=== PATIENT | female | born 1940 | race Caucasian/White ===

== ENCOUNTER 2016-08-21 07:54 | Day surgery (SDC) | payer MEDICARE, BC ==
[~2016-08-21 07:54] MED LIST: Lactated Ringers 1,000 ML IV SCH; Lidocaine 1% 2 ML SDV ONE; Lidocaine 1%/Sod Bicarbonate in NS 8.4% 1 ML Syringe IV PRN; Propofol 200 MG/20 ML SDV ONE; Sodium Chloride 0.9% 10 ML Syringe FLUSH PRN; fentaNYL 100 MCG/2 ML SDV ONE
--- NOTE | 2016-08-21 08:23 | PCM.PREANE ---
Preanesthetic Assessment - Allergies Allergies/Adverse Reactions: Allergies Allergy/AdvReac Type Severity Reaction Status Date / Time atorvastatin Allergy Itching Verified 08/20/16 15:22 Dairy Products Allergy Cannot Verified 08/20/16 15:22 Remember PreAnesthesia Questionnaire HEENT History: Reports: Impaired vision, Other (see below) Other HEENT History: glasses, dentures Cardiovascular History: Reports: High cholesterol, Hypertension Respiratory History: Reports: None Gastrointestinal History: Reports: Chronic diarrhea, GERD Genitourinary History: Reports: Other (see below) Other Genitourinary History: malignant neoplasm of bladder, 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 (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 below) Other OB/BYN History: spontaneous vaginal delivery Musculoskeletal History: Reports: Arthritis, Osteoporosis Psychiatric History: Reports: None Endocrine/Metabolic History: Reports: None Hematologic History: Reports: None Immunologic History: Reports: None Oncologic (Cancer) History: Reports: None Dermatologic History: Reports: None - Past Surgical History Head Surgeries/Procedures: Reports: None HEENT Surgical History: Reports: Cataract surgery, Tonsillectomy GI Surgical History: Reports: Colonoscopy Female Surgical History: Reports: Hysterectomy Musculoskeletal Surgical History: Reports: Other (see below) Other Musculoskeletal Surgeries/Procedures:: foot surgery, knee replacement, knee surgery - SUBSTANCE USE Smoking Status *Q: Never Smoker Recreational Drug Use History: No - HOME MEDS Home Medications: Home Meds Aspirin [Low Dose Aspirin EC] 81 mg PO DAILY 06/06/14 [History] Hydrochlorothiazide 12.5 mg PO DAILY 06/06/14 [History] Meloxicam [Mobic] 1 tab PO DAILY PRN 06/06/14 [History] Pravastatin [Pravachol] 40 mg PO DAILY 06/06/14 [History] Cyanocobalamin (Vitamin B-12) [Vitamin B-12] 1 tab PO DAILY 08/20/16 [History] Zoledronic Acid/Mannitol&Water [Zoledronic Acid 5 mg/100 ml] 5 mg IV ASDIRECTED 08/20/16 [History] - CURRENT (IN HOUSE) MEDS Current Meds: Current Medications Lactated Ringer's (Ringers, Lactated) 1,000 mls @ 125 mls/hr IV ASDIRECTED ZAIRA Lidocaine/Sodium Bicarbonate (Buffered Lidocaine 1% In Ns 8.4%) 0.25 ml IV ONETIME PRN PRN Reason: Prior to IV Start Sodium Chloride (Saline Flush) 10 ml FLUSH ASDIRECTED PRN PRN Reason: Keep Vein Open Discontinued Medications Fentanyl (Sublimaze) Confirm Administered Dose 100 mcg .ROUTE .STK-MED ONE Stop: 08/21/16 07:45 Lidocaine HCl (Lidocaine 1%) Confirm Administered Dose 6 ml .ROUTE .STK-MED ONE Stop: 08/21/16 07:45 Propofol (Diprivan 20 Ml) Confirm Administered Dose 200 mg .ROUTE .STK-MED ONE Stop: 08/21/16 07:45 Preanesthetic Assessment - ANESTHESIA/TRANSFUSION/FAMILY HX Anesthesia/Transfusion History: No Prior Transfusion(s), Prior Anesthesia Type of Anesthesia Reaction: Denies: Allergy, Anesthesia Awareness, Excessive Somnolence, Excessive Nausea/Vomiting, Excessive Itching, Excessive Shivering, Malignant Hyperthermia, Malignant Hyperthermia, Family History, Pseudocholinesterase Deficiency, Pseudocholinesterase Deficiency, Family History of, Urinary Retention, Unknown, Other (see below) Family History of Anesthesia Reaction: No Intubation History: Unknown - REVIEW OF SYSTEMS Constitutional: Reports: no symptoms 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 Respiratory: Reports: no symptoms Cardiovascular: Reports: blood pressure problem, dyspnea on exertion GI: Reports: no symptoms (constipation/ GERD) Other: Reports: None - PHYSICAL ASSESSMENT HR: 69 O2 Sat by Pulse Oximetry: 100 RR: 16 BP: 121/73 Temp: 36.6 C Height: 1.57 m Weight: 59 kg NPO Status Date: 08/20/16 NPO Status Time: 22:30 ASA Class: 2 Mental Status: Alert & Oriented x3 Airway Class: Mallampati = 2 Dentition: Reports: Dentures (upper) Thyro-Mental Finger Breadths: 3 Mouth Opening Finger Breadths: 3 ROM/Head Extension: Full Respiratory Status: lungs clear to auscultation bilaterally Cardiovascular Status: regular rate & rhythm, normal S1, S2, no murmur - ALLERGIES Allergies/Adverse Reactions: Allergies Allergy/AdvReac Type Severity Reaction Status Date / Time atorvastatin Allergy Itching Verified 08/20/16 15:22 Dairy Products Allergy Cannot Verified 08/20/16 15:22 Remember - ANESTHESIA PLAN Preop Beta Erin: No Anesthesia Type Planned: MAC - ACKNOWLEDGEMENTS Pt an Appropriate Candidate for the Planned Anesthesia: Yes Alternatives and Risks of Anesthesia Discussed w Pt/Guardian: Yes Pt/Guardian Understands and Agrees with Anesthesia Plan: Yes
--- NOTE | 2016-08-21 10:06 | PCM.OPNOTE ---
- General Post-Op/Procedure Note Date of Surgery/Procedure: 08/21/16 Operative Procedure(s): colonoscopy with random rectal biopsies x2 using cold forceps Findings: 1. large sigmoid diverticuli with hypertrophy of the musculature 2. internal hemorrhoids Pre Op Diagnosis: change in bowel habits Post-Op Diagnosis: 1. internal hemorrhoids. 2. sigmoid diverticulosis and spasm Anesthesia Technique: MAC, Moderate sedation Primary Surgeon: Dominic Morse Pathology: rectal biopsies x2 EBL in mLs: 0 Complications: None Condition: Good Free Text/Narrative:: After adequate IV sedation and analgesia was obtained the patient was placed on her left side. Perianal inspection and digital rectal examination revealed the uncomplicated internal hemorrhoids. A lubricated colonoscope was inserted into the rectum and advanced to the cecum without difficulty. The bowel preparation was adequate. The cecum, right colon, transverse, and descending colons were endoscopically normal with no mass lesions or inflammatory changes seen. The sigmoid musculature was thickened, and was associated with multiple uncomplicated diverticuli. The rectum in both views was unremarkable, but because of her history I took 2 random biopsies for histologic review. Air was removed, as I finished the procedure. Automobile Rental Clerk photographs were taken for the patient and for the record. There were no complications.
[2016-08-21 11:11] VITALS: BP 114/67
== END 2016-08-21 11:00 | disposition home or self-care (01) ==
LOC: JD.SDS 07:54
PROVIDERS: ATTEND Surgery
PROC: 0DBP8ZX Excision of Rectum, Via Natural or Artificial Opening Endoscopic, Diagnostic (ICD-10-PCS; principal; 2016-08-21)
DX: K57.30 Diverticulosis of large intestine without perforation or abscess without bleeding (principal); K64.8 Other hemorrhoids; M19.90 Unspecified osteoarthritis, unspecified site; H26.9 Unspecified cataract; K21.9 Gastro-esophageal reflux disease without esophagitis; I10 Essential (primary) hypertension; M81.0 Age-related osteoporosis without current pathological fracture; Z88.8 Allergy status to other drugs, medicaments and biological substances; Z91.011 Allergy to milk products; Z79.82 Long term (current) use of aspirin; Z79.899 Other long term (current) drug therapy; Z85.51 Personal history of malignant neoplasm of bladder; Z98.49 Cataract extraction status, unspecified eye; Z96.659 Presence of unspecified artificial knee joint; Z90.710 Acquired absence of both cervix and uterus; Z90.89 Acquired absence of other organs; Z98.890 Other specified postprocedural states
CPT/HCPCS: 45380; 88305; J3010; J7120; J2704

== ENCOUNTER 2018-02-12 08:00 | Day surgery (SDC) | payer MEDICARE, BC ==
[~2018-02-12 08:00] MED LIST changes: -Lidocaine 1% 2 ML SDV ONE; +Lidocaine 1%/Sod Bicarbonate in NS 8.4% 1 ML Syringe IDERM PRN; -Lidocaine 1%/Sod Bicarbonate in NS 8.4% 1 ML Syringe IV PRN; -Propofol 200 MG/20 ML SDV ONE; -fentaNYL 100 MCG/2 ML SDV ONE
--- NOTE | 2018-02-12 08:37 | PCM.PREANE ---
Preanesthetic Assessment - Procedure Proposed Procedure: Right First Metatarsophalangeal joint fusion - Anesthesia/Transfusion/Family Hx Anesthesia History: Prior Anesthesia Without Reaction Family History of Anesthesia Reaction: No Transfusion History: No Prior Transfusion(s) - Review of Systems General: No Symptoms Pulmonary: No Symptoms Cardiovascular: Other (hypertension, hyperlipidemia, bradycardia) Gastrointestinal: Other (GERD, on and off symptoms, none today.) Neurological: No Symptoms, Other (History of vertigo, no issues for "a long time ".) Other: Reports: None - Physical Assessment NPO Status Date: 02/11/18 NPO Status Time: 22:30 Pulse: 72 O2 Sat by Pulse Oximetry: 96 Respiratory Rate: 16 Blood Pressure: 142/59 Temperature: 36.6 C Weight: 59 kg ASA Class: 2 Mental Status: Alert & Oriented x3 Airway Class: Mallampati = 1 Dentition: Reports: Dentures (Upper) Thyro-Mental Finger Breadths: 2 Mouth Opening Finger Breadths: 3 ROM/Head Extension: Full Lungs: Clear to Auscultation, Normal Respiratory Effort Cardiovascular: Regular Rate, Regular Rhythm, Bradycardia - Lab Values: Laboratory Last Values MRSA (PCR) Negative 02/04/18 16:03 - Allergies Allergies/Adverse Reactions: Allergies Allergy/AdvReac Type Severity Reaction Status Date / Time atorvastatin Allergy Itching Verified 02/12/18 08:46 Dairy Products Allergy Cannot Verified 02/12/18 08:46 Remember - Acknowledgements Anesthesia Type Planned: General Anesthesia Pt an Appropriate Candidate for the Planned Anesthesia: Yes Alternatives and Risks of Anesthesia Discussed w Pt/Guardian: Yes Pt/Guardian Understands and Agrees with Anesthesia Plan: Yes PreAnesthesia Questionnaire HEENT History: Reports: Impaired Vision, Other (See Below) Other HEENT History: glasses, dentures Cardiovascular History: Reports: High Cholesterol, Hypertension Respiratory History: Reports: None Gastrointestinal History: Reports: Chronic Diarrhea, GERD, Hemorrhoids Genitourinary History: Reports: Other (See Below) Other Genitourinary History: malignant neoplasm of bladder, 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) Other OB/BYN History: spontaneous vaginal delivery, ovarian cyst, breast biopsy , A and P repair, cystocele , rectocele Musculoskeletal History: Reports: Arthritis, Osteoporosis, Other (See Below) Other Musculoskeletal History: right foot pain Neurological History: Reports: None Psychiatric History: Reports: None Endocrine/Metabolic History: Reports: None Hematologic History: Reports: None Immunologic History: Reports: None Oncologic (Cancer) History: Reports: None Dermatologic History: Reports: None - Past Surgical History Head Surgeries/Procedures: Reports: None HEENT Surgical History: Reports: Adenoidectomy, Cataract Surgery, Tonsillectomy Cardiovascular Surgical History: Reports: None Respiratory Surgical History: Reports: None GI Surgical History: Reports: Colonoscopy, EGD Female Surgical History: Reports: Hysterectomy Endocrine Surgical History: Reports: None Neurological Surgical History: Reports: None Musculoskeletal Surgical History: Reports: Other (See Below) Other Musculoskeletal Surgeries/Procedures:: foot surgery, bilateral knee replacements, knee surgery Oncologic Surgical History: Reports: None Dermatological Surgical History: Reports: None - SUBSTANCE USE Smoking Status *Q: Never Smoker Recreational Drug Use History: No - HOME MEDS Home Medications: Home Meds Pravastatin [Pravachol] 40 mg PO DAILY 06/06/14 [History] hydroCHLOROthiazide [Hydrochlorothiazide] 12.5 mg PO DAILY 06/06/14 [History] Cyanocobalamin (Vitamin B-12) [Vitamin B-12] 1 tab PO DAILY 08/20/16 [History] Beta-Carotene(A) w/C & E/Min [Prosight] 1 tab PO DAILY 02/11/18 [History] Denosumab [Prolia] 1 dose SQ ASDIRECTED 02/11/18 [History] Diphenoxylate HCl/Atropine [Lomotil] 2 tab PO DAILY 02/11/18 [History] Meclizine [Antivert] 12.5 mg PO Q8H 02/11/18 [History] Omeprazole 20 mg PO DAILY 02/11/18 [History] Psyllium [Metamucil] 1 cap PO DAILY 02/11/18 [History] Acetaminophen/HYDROcodone [[place] 325-5 MG] 1 - 2 tab PO Q6H PRN #40 tablet 02/12 [Rx] Aspirin 325 mg PO BID #84 tab 02/12/18 [Rx] - CURRENT (IN HOUSE) MEDS Current Meds: Current Medications Lactated Ringer's (Ringers, Lactated) 1,000 mls @ 125 mls/hr IV ASDIRECTED ZAIRA Stop: 02/12/18 18:00 Lidocaine/Sodium Bicarbonate (Buffered Lidocaine 1% In Ns 8.4%) 0.25 ml IDERM ONETIME PRN PRN Reason: Prior to IV Start Stop: 02/12/18 18:00 Sodium Chloride (Saline Flush) 10 ml FLUSH ASDIRECTED PRN PRN Reason: Keep Vein Open Stop: 02/12/18 18:00
[2018-02-12] MEDS ORDERED: Lactated Ringers 1,000 ML ONE ×2 (08:58→11:26)
[2018-02-12] MEDS ORDERED: Dexamethasone 4 MG/ML SDV ONE (08:58)
[2018-02-12] MEDS ORDERED: Ketorolac 30 MG/ML SDV ONE (08:58)
[2018-02-12] MEDS ORDERED: ceFAZolin 1 GM Vial ONE (08:58)
[2018-02-12] MEDS ORDERED: Ondansetron 4 MG/2 ML SDV ONE (08:58)
[2018-02-12] MEDS ORDERED: Propofol 200 MG/20 ML SDV ONE (08:58)
[2018-02-12] MEDS ORDERED: Midazolam 1 MG/ML 2 ML SDV ONE (08:59)
[2018-02-12] MEDS ORDERED: fentaNYL 100 MCG/2 ML SDV ONE (08:59)
[2018-02-12] MEDS ORDERED: Lidocaine 1% 4 ML ONE (09:00)
[2018-02-12] MEDS ORDERED: Famotidine 20 MG/2 ML SDV ONE (09:44)
[2018-02-12] MEDS ORDERED: Metoclopramide 10 MG/2 ML SDV ONE (10:19)
[2018-02-12] MEDS ORDERED: HYDROmorphone 0.5 MG/0.5 ML Syringe ONE ×2 (10:27→11:45)
[2018-02-12] MEDS ORDERED: Ketamine 500 mg/10 ML MDV ONE (10:39)
[2018-02-12] MEDS ORDERED: ePHEDrine/Normal Saline 25 MG/5 ML Syringe ONE (10:54)
[2018-02-12] MEDS ORDERED: Ondansetron 4 MG/2 ML SDV IVPUSH PRN (11:01)
[2018-02-12] MEDS ORDERED: HYDROmorphone 0.5 MG/0.5 ML Syringe IVPUSH PRN (11:01)
[2018-02-12] MEDS ORDERED: diphenhydrAMINE 50 MG/ML SDV IVPUSH PRN (11:01)
[2018-02-12] MEDS ORDERED: fentaNYL 100 MCG/2 ML SDV IVPUSH PRN (11:01)
[2018-02-12] MEDS: Bupivacaine 0.25% 30 ML SDV ONE ×2 (11:16→11:35)
--- NOTE | 2018-02-12 12:00 | PCM.POSTAN ---
POST ANESTHESIA ASSESSMENT - MENTAL STATUS Mental Status: Somnolent - VITAL SIGNS Pulse Rate: 66 SaO2: 96 Resp Rate: 12 Blood Pressure: 108/59 Temperature: 36.3 C - RESPIRATORY Respiratory Status: Respiratory Rate WNL, Airway Patent, O2 Saturation Stable, Supplemental Oxygen - CARDIOVASCULAR CV Status: Pulse Rate WNL, Blood Pressure Stable - GASTROINTESTINAL GI Status: No Symptoms - PAIN Pain Score: 0 - POST OP HYDRATION Hydration Status: Adequate & Stable
[2018-02-12] MEDS ORDERED: Phenylephrine/Normal Saline 100 MCG/ML 10 ML Syringe ONE (13:04)
--- NOTE | 2018-02-12 13:26 | CR ---
Right toe: Ten fluoroscopic spot views were obtained utilizing C-arm device. Comparison: No prior foot or toe study. Study shows placement of plate and screws across the MTP joint of the first digit. Findings are for fusion. Old surgery is noted within the PIP joint of the second toe. Fluoroscopy time is given as 11.7 seconds. Impression: 1. Toe fusion surgery as noted above. Diagnostic code #2
[2018-02-12 14:10] VITALS: BP 131/68
--- NOTE | 2018-02-19 06:54 | PCM.OPNOTE ---
- General Post-Op/Procedure Note Date of Surgery/Procedure: 02/12/18 Operative Procedure(s): right first metatarsal phalangeal fusion with deep hardware removal Pre Op Diagnosis: right first hallux rigidus with deep hardware Post-Op Diagnosis: Same Anesthesia Technique: General LMA, Local Primary Surgeon: Mariusz Ewing Anesthesia Provider: Mouna Whaley Top Installer: Ana Godinez EBL in mLs: 5 Complications: None Condition: Good
--- NOTE | 2018-02-23 08:03 | OR ---
DATE OF OPERATION: 02/12/2018 SURGEON: Mariusz Ewing MD OPERATION PERFORMED: Right first metatarsophalangeal joint fusion with deep hardware removal. PREOPERATIVE DIAGNOSIS: Right first hallux rigidus with deep hardware. POSTOPERATIVE DIAGNOSIS: Right first hallux rigidus with deep hardware. ANESTHESIA: General LMA with local. ANESTHESIA PROVIDER: Miryam Rizvi. CASING RUNNER: Ana Godinez PA-C. ESTIMATED BLOOD LOSS: 5 mL. COMPLICATIONS: None. CONDITION: Stable. DESCRIPTION OF PROCEDURE: The patient was identified in the preoperative holding area. Proper site was marked and identified by the surgeon. The patient was taken back to the operating theater where after adequate anesthesia, the patient's right lower extremity was sterilely prepped and draped in the usual sterile fashion. OR time-out was performed. The patient received 2 g IV Ancef. At this time, the right lower extremity was exsanguinated. Tourniquet was insufflated to 250 mmHg. The previous incision was utilized where it was extended up the first metatarsal and to the first proximal phalanx. At this time, this was taken down to the joint. The joint was noted to be significantly adhesed with a lot of scar tissue noted around the first MTP joint and it did take significant fraying of the joint to get it to the point where the first MTP joint could be fully visualized. The deep hardware staple was then identified and deep hardware removal was done at this time. At this time, guidepin was placed in a center- center position on both AP and lateral views at the head of the first metatarsal and a concentric reamer for 20 was then utilized and was brought down to good cancellous bone. At this time, a guidepin was placed in a center-center position in the proximal phalanx and again the conjoining reamer was used on the proximal phalanx. Drill hole was then placed in the proximal phalanx to get good bleeding bone. At this time, the provisional reduction was done at the first MTP joint and the dorsal [place] locking fusion plate was placed dorsally and had good contour, it was not prominent and was noted to have good compression over the site. At this time, 1 nonlocking screw was placed both proximally and distally to the fusion site as well as 1 locking screw proximally and distally to the fusion site. It had adequate fixation. At this time, I did morselize some of the previous reamings, not to place around the fusion site for graft as well at this time. At this time, it was found to have adequate fixation as well as good positioning on both AP and lateral views of the foot. Adequate saline was then irrigated through the wound, 2-0 Vicryl was used deep for the closure of the capsule, 3-0 was used subcutaneously and nylon was used for the skin. The patient had a sterile soft dressing applied and was sent to PACU in stable condition. MMODAL /[id number]
== END 2018-02-12 13:52 | disposition home or self-care (01) ==
LOC: JD.SDS 08:00
PROVIDERS: ATTEND Orthopaedic Surgery
DX: M20.21 Hallux rigidus, right foot (principal); I10 Essential (primary) hypertension; M19.90 Unspecified osteoarthritis, unspecified site; K21.9 Gastro-esophageal reflux disease without esophagitis; E78.5 Hyperlipidemia, unspecified; Z79.82 Long term (current) use of aspirin; Z79.899 Other long term (current) drug therapy; Z88.8 Allergy status to other drugs, medicaments and biological substances; Z91.011 Allergy to milk products
CPT/HCPCS: 20680; 28750; 76000; 87641; C1713; J0690; J1100; J1170; J1885; J2405; J2704; J2765; J3010; J3490; J7050; J7120; 01480; J2001; J2250; J2370

== ENCOUNTER 2020-08-31 09:06 | Day surgery (SDC) | payer MEDICARE ==
[~2020-08-31 09:06] MED LIST changes: +Lidocaine 1% 4 ML ONE; +Midazolam 1 MG/ML 2 ML SDV ONE; +Propofol 200 MG/20 ML SDV ONE; +fentaNYL 100 MCG/2 ML SDV ONE
[2020-08-31] MEDS ORDERED: Bupivacaine 0.25% 10 ML SDV ONE (09:10)
--- NOTE | 2020-08-31 09:20 | PCM.SN.2 ---
- Free Text/Narrative Note: Anesthesia Note: Right Ankle Block Time out: 930 Start: 934 Stop: 936 Block information given to patient. Risk/benefits discussed/ consent obtained. Patient placed on monitors/alarms on, O2 via nasal cannula @ 2 LPM. Versed 2mg IV and fentanyl 50mcg IV given prior to procedure. Right ankle block placed. Total of 10ml's given: (5ml's 1%lidocaine/5ml's 0.5%marcaine mixture) 2ml's: deep peroneal 2ml's: superficial peroneal 2ml's: sural nerve 2ml's: posterior tibial nerve 2ml's: saphenous nerve Patient tolerated procedure well. Thank you, Denise DICKENS
--- NOTE | 2020-08-31 09:23 | PCM.PREANE ---
Preanesthetic Assessment - Anesthesia/Transfusion/Family Hx Anesthesia History: Prior Anesthesia Without Reaction Family History of Anesthesia Reaction: No Transfusion History: No Prior Transfusion(s) Intubation History: Unknown - Review of Systems General: No Symptoms Pulmonary: No Symptoms Cardiovascular: No Symptoms Gastrointestinal: No Symptoms Neurological: No Symptoms Other: Reports: None - Physical Assessment NPO Status Date: 08/30/20 NPO Status Time: 21:00 ASA Class: 2 Mental Status: Alert & Oriented x3 Airway Class: Mallampati = 1 Dentition: Reports: Dentures (upper) ROM/Head Extension: Other Lungs: Clear to Auscultation Cardiovascular: Regular Rate, Regular Rhythm - Lab Values: Laboratory Last Values MRSA (PCR) Negative 08/16/20 15:03 - Allergies Allergies/Adverse Reactions: Allergies Allergy/AdvReac Type Severity Reaction Status Date / Time atorvastatin Allergy Itching Verified 08/30/20 11:55 Dairy Products Allergy Cannot Verified 08/30/20 11:55 Remember - Acknowledgements Anesthesia Type Planned: Regional Block, MAC Pt an Appropriate Candidate for the Planned Anesthesia: Yes Alternatives and Risks of Anesthesia Discussed w Pt/Guardian: Yes Pt/Guardian Understands and Agrees with Anesthesia Plan: Yes PreAnesthesia Questionnaire HEENT History: Reports: Impaired Vision, Other (See Below) Other HEENT History: glasses, eyelid surgery, wears glasses, upper denture Cardiovascular History: Reports: High Cholesterol, Hypertension, SOB on Exertion Respiratory History: Reports: None Gastrointestinal History: Reports: Chronic Diarrhea, GERD, Hemorrhoids, Other (See Below) Other Gastrointestinal History: bladder/bowel incontinence Genitourinary History: Reports: Other (See Below) Other Genitourinary History: malignant neoplasm of bladder, cystoscopy, rectocele and cystocele repair, A and P repair 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: Other (See Below) Other OB/BYN History: spontaneous vaginal delivery, ovarian cyst, breast biopsy, A and P repair, cystocele , rectocele Musculoskeletal History: Reports: Arthritis, Osteoporosis, Other (See Below) Other Musculoskeletal History: right foot pain, right toe pain, osteoporosis, left hip pain, right ankle fracture, right knee pain Neurological History: Reports: None Psychiatric History: Reports: None Endocrine/Metabolic History: Reports: None Hematologic History: Reports: None Immunologic History: Reports: None Oncologic (Cancer) History: Reports: None Dermatologic History: Reports: None - Infectious Disease History Infectious Disease History: Reports: None - Past Surgical History Head Surgeries/Procedures: Reports: None HEENT Surgical History: Reports: Adenoidectomy, Cataract Surgery, Tonsillectomy Cardiovascular Surgical History: Reports: None Respiratory Surgical History: Reports: None GI Surgical History: Reports: Colonoscopy, EGD, Other (See Below) Other GI Surgeries/Procedures: hemorrhoidectomy Female Surgical History: Reports: Hysterectomy Male Surgical History: Reports: None Endocrine Surgical History: Reports: None Neurological Surgical History: Reports: None Musculoskeletal Surgical History: Reports: Other (See Below) Other Musculoskeletal Surgeries/Procedures:: foot surgery, bilateral knee replacements, knee surgery Oncologic Surgical History: Reports: None Dermatological Surgical History: Reports: None - SUBSTANCE USE Tobacco Use Status *Q: Never Tobacco User Recreational Drug Use History: No - HOME MEDS Home Medications: Home Meds Pravastatin [Pravachol] 40 mg PO DAILY 06/06/14 [History] hydroCHLOROthiazide [Hydrochlorothiazide] 12.5 mg PO DAILY 06/06/14 [History] Cyanocobalamin (Vitamin B-12) [Vitamin B-12] 1 tab PO DAILY 08/20/16 [History] Denosumab [Prolia] 1 dose SQ ASDIRECTED 02/11/18 [History] Diphenoxylate HCl/Atropine [Lomotil] 2 tab PO BID 02/11/18 [History] Meclizine [Antivert] 12.5 mg PO Q8H 02/11/18 [History] Omeprazole 20 mg PO DAILY 02/11/18 [History] Psyllium [Metamucil] 1 cap PO DAILY 02/11/18 [History] Aspirin 325 mg PO BID #84 tab 02/12/18 [Rx] Beta-Carotene(A) w/C & E/Min [Prosight] 1 tab PO DAILY 08/30/20 [History] Omeprazole Magnesium [Prilosec Otc] 20 mg PO DAILY 08/30/20 [History] Acetaminophen/HYDROcodone [[place] 325-5 MG] 1 - 2 tab PO Q6H PRN #30 tablet 08/31/20 [Rx] Aspirin [Aspirin EC] 325 mg PO BID #84 tab 08/31/20 [Rx] - CURRENT (IN HOUSE) MEDS Current Meds: Current Medications Lactated Ringer's (Ringers, Lactated) 1,000 mls @ 125 mls/hr IV ASDIRECTED ZAIRA Stop: 08/31/20 23:00 Lidocaine/Sodium Bicarbonate (Lidocaine 1%/Sod Bicarbonate In Ns 8.4% 1 Ml Syringe) 0.25 ml IDERM ONETIME PRN PRN Reason: Prior to IV Start Stop: 08/31/20 18:00 Sodium Chloride (Sodium Chloride 0.9% 10 Ml Syringe) 10 ml FLUSH ASDIRECTED PRN PRN Reason: Keep Vein Open Stop: 08/31/20 18:00 Discontinued Medications Bupivacaine HCl (Bupivacaine 0.25% 10 Ml Sdv) Confirm Administered Dose 30 ml .ROUTE .STK-MED ONE Stop: 08/31/20 09:11 Fentanyl (Fentanyl 100 Mcg/2 Ml Sdv) Confirm Administered Dose 100 mcg .ROUTE .STK-MED ONE Stop: 08/31/20 09:00 Lidocaine HCl (Xylocaine-Mpf 1%) Confirm Administered Dose 4 mls @ as directed .ROUTE .STK-MED ONE Stop: 08/31/20 09:03 Midazolam HCl (Midazolam 1 Mg/Ml 2 Ml Sdv) Confirm Administered Dose 2 mg .ROUTE .STK-MED ONE Stop: 08/31/20 08:59 Propofol (Propofol 200 Mg/20 Ml Sdv) Confirm Administered Dose 200 mg .ROUTE .STK-MED ONE Stop: 08/31/20 08:59
[2020-08-31] MEDS ORDERED: Lidocaine 1% 30 ML SDV ONE (09:25)
[2020-08-31] MEDS ORDERED: Bupivacaine 0.5% 30 ML SDV ONE (09:26)
[2020-08-31] MEDS ORDERED: ceFAZolin 1 GM Vial ONE (10:26)
[2020-08-31] MEDS ORDERED: Ketorolac 30 MG/ML SDV ONE (11:06)
[2020-08-31] MEDS ORDERED: Ondansetron 4 MG/2 ML SDV ONE (11:06)
--- NOTE | 2020-08-31 11:37 | PCM48HPAN ---
Post Anesthesia Note - EVALUATION WITHIN 48HRS OF ANESTHETIC Vital Signs in Normal Range: Yes Patient Participated in Evaluation: Yes Respiratory Function Stable: Yes Airway Patent: Yes Cardiovascular Function Stable: Yes Hydration Status Stable: Yes Pain Control Satisfactory: Yes Nausea and Vomiting Control Satisfactory: Yes Mental Status Recovered: Yes Vital Signs: Last Vital Signs Temp 36.7 C 08/31/20 09:20 Pulse 64 08/31/20 09:20 Resp 16 08/31/20 09:20 BP 113/84 08/31/20 09:20 Pulse Ox 94 L 08/31/20 09:20
--- NOTE | 2020-08-31 11:51 | CR ---
Right toe: 5 fluoroscopic spot views were obtained centered to the right second toe. Prior surgery is noted within the MTP joint of the first toe. This study shows fusion at the IP joint of the second toe with orthopedic hardware and fixation pin. Fluoroscopy time is given as 9.4 seconds. Impression: 1. Procedural study as noted above. Diagnostic code #2
[2020-08-31] MEDS ORDERED: Lactated Ringers 1,000 ML ONE (12:48)
[2020-08-31 13:45] VITALS: BP 119/73; PULSE 60
--- NOTE | 2020-09-10 20:36 | PCM.OPNOTE ---
- General Post-Op/Procedure Note Date of Surgery/Procedure: 08/31/20 Operative Procedure(s): right second toe partial proximal phalangectomy with shortening Pre Op Diagnosis: painful right second toe Post-Op Diagnosis: Same Anesthesia Technique: MAC, Regional Block Primary Surgeon: Mariusz Ewing Anesthesia Provider: Taya Rogers Metal Mixer: Ana Godinez EBL in mLs: 5 Complications: None Condition: Good
--- NOTE | 2020-09-11 07:43 | OR ---
DATE OF OPERATION: 08/31/2020 SURGEON: Mariusz Ewing MD OPERATION PERFORMED: Right second toe partial phalangectomy with shortening. PREOPERATIVE DIAGNOSIS: Painful right second toe. POSTOPERATIVE DIAGNOSIS: Painful right second toe. ANESTHESIA: MAC with regional block. ANESTHESIA PROVIDER: Taya Rogers CRNA VAN LOADER: Ana Godinez PA-C ESTIMATED BLOOD LOSS: Less than 5 mL. COMPLICATIONS: None. CONDITION: Stable. DESCRIPTION OF PROCEDURE: The patient was identified in the preoperative holding area. Proper site was marked and identified by the surgeon. The patient was taken back to the operating theater, where after adequate anesthesia, the right lower extremity was sterilely prepped and draped in the usual sterile fashion. OR time-out was performed. The patient received 2 g IV Ancef. A nonsterile tourniquet had been applied to the right lower extremity. At this time, right lower extremity was exsanguinated. Tourniquet was insufflated to 200 mmHg. 1% lidocaine without epinephrine and 0.25% Marcaine without epinephrine were used to anesthetize with an ankle block and digital block. A dorsal incision was made utilizing the previous dorsal incision. This was taken down to the PIP joint as well as the proximal phalanx. The tendon was retracted and was noted to be scarred in severely as the patient has no significant movement secondary to the previous fusion device. This was taken down to the proximal phalanx, proximal head, and neck of the proximal phalanx was identified. At this time, utilizing C-arm fluoroscopy, my resection level was marked, and I used a rongeur for resection. I did run into the implant that was previously there. It was significantly healed in, and I was not able to completely take it out, but I was able to get a K-wire in a retrograde fashion just deep to this implant to bring it through the end of the toe and then all the way up into the metatarsal. The patient was noted to have of the second toe just as long as the third toe now with significant good shortening. It had good capillary refill. At this time, C-arm fluoroscopy showed it to be in good position with the K-wire in good position. Adequate saline was irrigated through the wound. 3-0 Vicryl was used subcutaneously and for closure of the skin. The patient was placed in a sterile soft dressing and sent to the PACU in stable condition. RAMON: 09/11/2020 07:18:15 MMODAL /[id number]
== END 2020-08-31 13:07 | disposition home or self-care (01) ==
LOC: JD.SDS 09:06
PROVIDERS: ATTEND Orthopaedic Surgery
DX: M79.674 Pain in right toe(s) (principal); G89.29 Other chronic pain; M20.5X1 Other deformities of toe(s) (acquired), right foot; I10 Essential (primary) hypertension; M81.0 Age-related osteoporosis without current pathological fracture; E78.5 Hyperlipidemia, unspecified; Z88.8 Allergy status to other drugs, medicaments and biological substances; Z91.011 Allergy to milk products; Z79.82 Long term (current) use of aspirin; Z79.899 Other long term (current) drug therapy; Z87.19 Personal history of other diseases of the digestive system; Z98.890 Other specified postprocedural states
CPT/HCPCS: 01480; 64450; 76000; 76000-26; 87641; 99100; C1713; J0690; J1885; J2250; J2405; J2704; J3010; J3490; J7120

== ENCOUNTER → 2021-03-01 | Day surgery (SDC) | payer MEDICARE ==
[~2021-03-01] MED LIST changes: +Bupivacaine 0.25% 10 ML SDV ONE; +Lidocaine 1% 30 ML SDV ONE; -Lidocaine 1% 4 ML ONE; -Midazolam 1 MG/ML 2 ML SDV ONE; -Propofol 200 MG/20 ML SDV ONE; +ceFAZolin 1 GM Vial ONE; -fentaNYL 100 MCG/2 ML SDV ONE
[2021-03-01 16:45] VITALS: BP 131/66; PULSE 91
--- NOTE | 2021-03-14 06:47 | PCM.OPNOTE ---
- General Post-Op/Procedure Note Date of Surgery/Procedure: 03/01/21 Operative Procedure(s): left carpal tunnel release Pre Op Diagnosis: left median nerve compression neuropathy Post-Op Diagnosis: Same Anesthesia Technique: Local Primary Surgeon: Mariusz Ewing Agency Legal Counsel: Ana Godinez in mLs: 5 Complications: None Condition: Good
--- NOTE | 2021-03-14 07:21 | OR ---
DATE OF OPERATION: 03/01/2021 SURGEON: Mariusz Ewing MD OPERATION PERFORMED: Left carpal tunnel release. PREOPERATIVE DIAGNOSIS: Left median nerve compression neuropathy. POSTOPERATIVE DIAGNOSIS: Left median nerve compression neuropathy. ANESTHESIA: Local only. ROAD CLEANER: Ana Godinez PA-C. ESTIMATED BLOOD LOSS: Less than 5 mL. COMPLICATIONS: None. CONDITION: Stable. DESCRIPTION OF PROCEDURE: The patient was identified in the preop holding area. Proper site was marked and identified by the surgeon. The patient was taken back to the operating theater where after adequate anesthesia, the patient's left upper extremity was sterilely prepped and draped in the usual sterile fashion. OR time-out was performed. The patient did not receive antibiotics and it is not indicated for soft tissue hand procedure. At this time, the left upper extremity was exsanguinated and an Esmarch was used as a tourniquet on the forearm. At this time, using 1% lidocaine without epinephrine and 0.25% Marcaine without epinephrine, the palmar cutaneous branch of the median nerve was anesthetized and then the incisional site was anesthetized using Soares cardinal line and ulnar border of the fourth digit as reference. Once this had set up, an incision was made. Blunt dissection was taken down to the palmar cutaneous fascia. Palmar cutaneous fascia was incised with a [place] blade. At this time, the transverse carpal ligament was identified. A small rent was made in the transverse carpal ligament with a [place] blade under direct visualization. Resection of the transverse carpal ligament was done distally using tenotomy scissors making sure to stop short of the palmar arch. At this time, attention was turned proximally after it was found to be adequately released. Using the tenotomy scissors keeping the tips ulnar to protect the palmar cutaneous branch of the median nerve, the superficial forearm fascia as well as the transverse carpal ligament were resected proximally. It was found to be adequate release both proximally and distally. At this time, adequate saline was irrigated through the wound. 4-0 nylon sutures were used closure of the skin. The patient was placed in a sterile soft dressing and sent to PACU in stable condition. MMODAL /[id number]
== END | disposition home or self-care (01) ==
LOC: JD.SDS 11:02
PROVIDERS: ATTEND Orthopaedic Surgery
DX: G56.12 Other lesions of median nerve, left upper limb (principal); Z88.8 Allergy status to other drugs, medicaments and biological substances; Z79.899 Other long term (current) drug therapy
CPT/HCPCS: 64721; J0690; J3490; J7120

== ENCOUNTER 2022-05-08 10:36 | Day surgery (SDC) | payer MEDICARE ==
[~2022-05-08 10:36] MED LIST changes: -Bupivacaine 0.25% 10 ML SDV ONE; -Lidocaine 1% 30 ML SDV ONE; +Propofol 200 MG/20 ML SDV ONE; +Sodium Chloride 0.9% 10 ML Syringe FLUSH SCH; -ceFAZolin 1 GM Vial ONE
[2022-05-08] MEDS ORDERED: Ondansetron 4 MG/2 ML SDV ONE (10:39)
[2022-05-08] MEDS ORDERED: fentaNYL 100 MCG/2 ML SDV ONE (10:39)
[2022-05-08] MEDS ORDERED: ceFAZolin 2 GM Vial ONE (10:39)
[2022-05-08] MEDS ORDERED: Dexamethasone 4 MG/ML 5 ML MDV ONE (10:39)
[2022-05-08] MEDS ORDERED: Ketorolac 15 MG/ML SDV ONE (10:39)
[2022-05-08] MEDS ORDERED: Bupivacaine 0.25% 10 ML SDV ONE (11:12)
[2022-05-08] MEDS ORDERED: Scopolamine 1.5 MG Transdermal Patch TRDERM SCH (11:29)
[2022-05-08] MEDS ORDERED: Lidocaine 1% 10 ML MDV ONE (11:31)
[2022-05-08] MEDS ORDERED: Midazolam 1 MG/ML 2 ML SDV ONE (11:48)
[2022-05-08] MEDS ORDERED: Lactated Ringers 1,000 ML ONE (12:43)
[2022-05-08 14:53] VITALS: BP 122/82; PULSE 65
== END 2022-05-08 14:45 | disposition home or self-care (01) ==
LOC: JD.SDS 10:36
PROVIDERS: ATTEND Orthopaedic Surgery
DX: M79.674 Pain in right toe(s) (principal); M19.071 Primary osteoarthritis, right ankle and foot; I10 Essential (primary) hypertension; M81.0 Age-related osteoporosis without current pathological fracture; E78.5 Hyperlipidemia, unspecified; K21.9 Gastro-esophageal reflux disease without esophagitis; E78.00 Pure hypercholesterolemia, unspecified; Z98.890 Other specified postprocedural states; Z88.8 Allergy status to other drugs, medicaments and biological substances; Z79.899 Other long term (current) drug therapy; Z90.710 Acquired absence of both cervix and uterus; Z79.82 Long term (current) use of aspirin; Z91.011 Allergy to milk products; Z88.5 Allergy status to narcotic agent
CPT/HCPCS: 28160; 76000; A9270; C1713; J0690; J1100; J1885; J2250; J2405; J2704; J3010; J3490; J7120; 01470; 99100

== ENCOUNTER 2022-07-01 10:32 | Day surgery (SDC) | payer MEDICARE, BC ==
[~2022-07-01 10:32] MED LIST changes: -Propofol 200 MG/20 ML SDV ONE
[2022-07-01] MEDS ORDERED: fentaNYL 100 MCG/2 ML SDV ONE (12:07)
[2022-07-01] MEDS ORDERED: Propofol 200 MG/20 ML SDV ONE (12:07)
[2022-07-01] MEDS ORDERED: Midazolam 1 MG/ML 2 ML SDV ONE (12:08)
[2022-07-01] MEDS ORDERED: Lidocaine 1% 2 ML ONE (12:09)
[2022-07-01] MEDS ORDERED: Lidocaine 1% 10 ML MDV ONE (12:19)
[2022-07-01] MEDS ORDERED: Bupivacaine 0.25% 10 ML SDV ONE ×2 (12:19→12:26)
[2022-07-01] MEDS ORDERED: Triamcinolone Acetonide 40 MG/ML 1 ML SDV ONE (12:26)
[2022-07-01] MEDS ORDERED: ceFAZolin 2 GM Vial ONE (12:52)
[2022-07-01 14:55] VITALS: BP 125/50; PULSE 66
== END 2022-07-01 14:32 | disposition home or self-care (01) ==
LOC: JD.SDS 10:32
PROVIDERS: ATTEND Orthopaedic Surgery
DX: T84.498A Other mechanical complication of other internal orthopedic devices, implants and grafts, initial encounter (principal); I10 Essential (primary) hypertension; E78.00 Pure hypercholesterolemia, unspecified; K21.9 Gastro-esophageal reflux disease without esophagitis; M19.90 Unspecified osteoarthritis, unspecified site; M81.0 Age-related osteoporosis without current pathological fracture; Z98.890 Other specified postprocedural states; Z79.899 Other long term (current) drug therapy; Z88.8 Allergy status to other drugs, medicaments and biological substances; Z88.5 Allergy status to narcotic agent
CPT/HCPCS: 20680; 76000; J0690; J2250; J2704; J3010; J3301; J3490; J7120; 01480; 99100

== ENCOUNTER 2022-08-20 01:01 | Emergency (ER) | payer BC, MEDICARE ==
[2022-08-20 01:25] VITALS: BP 183/70; PULSE 69
[2022-08-20] MEDS ORDERED: Ondansetron 4 MG Tab.DIS PO ONE (01:32)
[2022-08-20] MEDS ORDERED: Meclizine 25 MG Tab PO ONE ×2 (01:33→04:03)
[2022-08-20] MEDS ORDERED: Ondansetron 4 MG/2 ML SDV IVPUSH ONE (02:08)
[2022-08-20] MEDS ORDERED: Sodium Chloride 0.9% 1,000 ML IV ONE (04:42)
[2022-08-20] MEDS ORDERED: cefTRIAXone 1 GM in Sodium Chloride 0.9% 100 ML IV ONE (06:20)
== END 2022-08-20 08:01 | disposition home or self-care (01) ==
LOC: JD.ED 01:01
DX: N39.0 Urinary tract infection, site not specified (principal); E78.00 Pure hypercholesterolemia, unspecified; I10 Essential (primary) hypertension; K21.9 Gastro-esophageal reflux disease without esophagitis; Z79.82 Long term (current) use of aspirin; Z79.899 Other long term (current) drug therapy; Z88.5 Allergy status to narcotic agent; Z88.8 Allergy status to other drugs, medicaments and biological substances; Z91.011 Allergy to milk products
CPT/HCPCS: 36415; 80053; 81001; 85025; 87086; 87088; 87186; 96361; 96365; 96375; 99284; A9270; J0696; J2405; J3490; J7030

== ENCOUNTER 2024-09-02 07:20 | Day surgery (SDC) | payer MEDICARE ==
[~2024-09-02 07:20] MED LIST changes: -Lactated Ringers 1,000 ML IV SCH; -Lidocaine 1%/Sod Bicarbonate in NS 8.4% 1 ML Syringe IDERM PRN
[2024-09-02] MEDS ORDERED: Propofol 200 MG/20 ML SDV ONE ×2 (08:56→09:40)
[2024-09-02] MEDS ORDERED: fentaNYL 100 MCG/2 ML SDV ONE (08:57)
[2024-09-02] MEDS ORDERED: ePHEDrine 50 MG/ML SDV ONE (09:12)
[2024-09-02] MEDS: Lactated Ringers 1,000 ML IV SCH (09:15)
[2024-09-02] MEDS ORDERED: ceFAZolin 2 GM Vial ONE (09:40)
[2024-09-02] MEDS: Lidocaine 1% 10 ML MDV ONE (10:04)
[2024-09-02] MEDS: Bupivacaine 0.25% 10 ML SDV ONE (10:04)
[2024-09-02 11:18] VITALS: BP 146/65; PULSE 54
== END 2024-09-02 10:58 | disposition home or self-care (01) ==
LOC: JD.SDS 07:20
PROVIDERS: ATTEND Orthopaedic Surgery
DX: G56.11 Other lesions of median nerve, right upper limb (principal); G56.01 Carpal tunnel syndrome, right upper limb; I10 Essential (primary) hypertension; E78.00 Pure hypercholesterolemia, unspecified; K21.9 Gastro-esophageal reflux disease without esophagitis; Z79.899 Other long term (current) drug therapy; Z88.8 Allergy status to other drugs, medicaments and biological substances; Z91.011 Allergy to milk products
CPT/HCPCS: 64721; J0665; J0690; J2003; J2704; J7120; 01810; 99100; J3010; J3490